=== PATIENT | female | born 1970 | race Hispanic/Latino ===

== ENCOUNTER 2021-02-06 17:59 | Emergency (ER) | payer OTHER, SELFPAY ==
[2021-02-06] MEDS ORDERED: Ibuprofen 200 MG TAB ONE (20:18)
[2021-02-06 20:59] LABS: SARS-CoV-2 NAA Rapid Test DETECTED (NotDetected)
== END 2021-02-06 22:05 | disposition home or self-care (01) ==
LOC: CSHERS 17:59
DX: U07.1 COVID-19 (principal); J45.909 Unspecified asthma, uncomplicated; G43.909 Migraine, unspecified, not intractable, without status migrainosus; E11.9 Type 2 diabetes mellitus without complications; Z79.84 Long term (current) use of oral hypoglycemic drugs; Z79.899 Other long term (current) drug therapy
CPT/HCPCS: 0240U; 99283

== ENCOUNTER 2021-02-08 11:45 | Inpatient (IN) | payer OTHER, SELFPAY ==
[2021-02-08 12:52] LABS: #Monocytes 0.4 10x3/uL (0.0-1.1); #Neutrophils 3.2 10x3/uL (1.5-8.4); %Basophils 0.4 % (0.0-2.0); %Lymphocytes 26.2 % (18.0-47.0); %Monocytes 7.8 % (0.0-10.0); %Neutrophils 65.4 % (40.0-75.0); Hemoglobin 13.7 g/dL (12.0-15.5); Mean Corpuscular Hemoglobin 30.4 pg (27.0-33.0); Mean Corpuscular Volume 89.4 fl (81.6-98.3); Mean Platelet Volume 10.5 fl (7.4-10.4); Platelet Count 219 10x3/uL (150-450); RBC Distribution Width 12.2 % (11.5-14.5); Red Blood Cell (RBC) Count 4.51 10x6/uL (3.90-5.03); White Blood Cell (WBC) Count 4.9 10x3/uL (3.5-10.5)
[2021-02-08 13:10] LABS: ALT (SGPT) 14 U/L (8-55); AST (SGOT) 18 U/L (5-34); Albumin 3.8 g/dL (3.5-5.0); Alkaline Phosphatase 67 U/L (40-110); Anion Gap 20 mmol/L (10-20); BUN (Urea Nitrogen) 7 mg/dL (7.0-18.7); Bilirubin, Total 0.2 mg/dL (0.2-1.2); Calc. Creatinine Clearance 0 mL/min (70-130); Calcium 8.1 mg/dL (7.8-10.44); Carbon Dioxide 17 mmol/L (22-29); Chloride 99 mmol/L (98-107); Globulin 3.1 g/dL (2.4-3.5); Glucose 281 mg/dL (70-105); Potassium 3.9 mmol/L (3.5-5.1); Protein, Total 6.9 g/dL (6.0-8.3); Sodium 132 mmol/L (136-145)
[2021-02-08] MEDS ORDERED: Ibuprofen 200 MG TAB ONE (14:56)
[2021-02-08 15:14] LABS: Actual Bicarbonate (HCO3v) 18 mEq/L (22-28); Base Excess -6.4 mEq/L (-2.0 to +3.0); Calcium, Ionized (venous) 0.95 mmol/L (1.16-1.32); Chloride (VBG) 97 mmol/L (98-106); Hemoglobin (Hb) 14.2 g/dL (11.7-16.0); Potassium (VBG) 8.34 mmol/L (3.70-5.30); Puncture Site Other Site; Sodium 126.4 mmol/L (133-146); pH (venous) 7.35 (7.32-7.43)
[2021-02-08] MEDS ORDERED: Sodium Chloride 0.65% Nasal 44 ML BOT EA NARE PRN (16:24)
[2021-02-08] MEDS ORDERED: Acetaminophen 500 MG TAB PO PRN (16:24)
[2021-02-08] MEDS ORDERED: Dextrose 5% in Water 1,000 ML IV PRN (16:24)
[2021-02-08] MEDS ORDERED: Dextrose 50% Abboject 50 ML SYRINGE SLOW IVP PRN (16:24)
[2021-02-08] MEDS ORDERED: Ondansetron PF 4 MG/2 ML Vial IVP PRN (16:24)
[2021-02-08] MEDS ORDERED: Ondansetron ODT 4 MG TAB PO PRN (16:24)
[2021-02-08] MEDS ORDERED: Sodium Chloride 0.9% 1,000 ML IV SCH (16:30)
[2021-02-08] MEDS ORDERED: Insulin Regular 300 UNITS/3 ML VIAL ONE (17:06)
[2021-02-08 19:07] VITALS: BMI 26.2
[2021-02-08] MEDS: Cholecalciferol 1,000 UNITS (25 MCG) TAB PO SCH (20:58)
[2021-02-08] MEDS: HumaLOG 300 UNITS/3 ML VIAL SC PRN (20:59)
[2021-02-09] MEDS: GUAIFENESIN SF SOLN 200 MG/10 ML UDCUP PO PRN ×3 (04:20→17:15)
[2021-02-09] MEDS: HumaLOG 300 UNITS/3 ML VIAL SC PRN ×4 (06:07→21:35)
[2021-02-09 07:22] LABS: #Monocytes 0.4 10x3/uL (0.0-1.1); #Neutrophils 3.2 10x3/uL (1.5-8.4); %Basophils 0.4 % (0.0-2.0); %Eosinophils 0.2 % (0.0-6.0); %Lymphocytes 24.1 % (18.0-47.0); %Monocytes 7.7 % (0.0-10.0); %Neutrophils 67.4 % (40.0-75.0); Hemoglobin 11.9 g/dL (12.0-15.5); Mean Corpuscular HGB CONC 34.2 g/dL (32.0-36.0); Mean Corpuscular Hemoglobin 30.1 pg (27.0-33.0); Mean Corpuscular Volume 88.1 fl (81.6-98.3); Mean Platelet Volume 10.9 fl (7.4-10.4); Platelet Count 193 10x3/uL (150-450); RBC Distribution Width 12.2 % (11.5-14.5); Red Blood Cell (RBC) Count 3.95 10x6/uL (3.90-5.03); White Blood Cell (WBC) Count 4.7 10x3/uL (3.5-10.5)
[2021-02-09 07:42] LABS: Anion Gap 16 mmol/L (10-20); BUN (Urea Nitrogen) 6 mg/dL (7.0-18.7); Calc. Creatinine Clearance 109 mL/min (70-130); Calcium 7.5 mg/dL (7.8-10.44); Carbon Dioxide 17 mmol/L (22-29); Chloride 108 mmol/L (98-107); Glucose 224 mg/dL (70-105); Potassium 3.9 mmol/L (3.5-5.1); Sodium 137 mmol/L (136-145)
[2021-02-09] MEDS ORDERED: Ventolin HFA Inhaler 60 PUFF INHALER INH PRN ×3 (08:55→14:27)
[2021-02-09] MEDS: Zinc Sulfate 220 MG CAP PO SCH (09:36)
[2021-02-09] MEDS: Ascorbic Acid 500 mg Chewable Tablet PO SCH (09:36)
[2021-02-09] MEDS: Ibuprofen 200 MG TAB PO PRN ×2 (13:05→21:33)
[2021-02-09] MEDS: Benzonatate 100 MG CAP PO PRN ×2 (13:05→21:33)
[2021-02-09] MEDS ORDERED: Dextrose 50% Abboject 50 ML SYRINGE SLOW IVP PRN (14:24)
[2021-02-09] MEDS ORDERED: Dextrose 5% in Water 1,000 ML IV PRN (14:24)
[2021-02-09 14:37] LABS: Hemoglobin 11.9 g/dL (12.0-15.5)
[2021-02-09] MEDS: Azithromycin 500 MG in Sodium Chloride 0.9% 250 ML 250 ML IVPB SCH (17:30)
[2021-02-09] MEDS: cefTRIAXone\\ROCEPHIN 1 GM in Sodium Chloride 0.9% 100 ML IVPB SCH (19:00)
[2021-02-09] MEDS: Atorvastatin Calcium 10 MG TAB PO SCH (21:33)
[2021-02-09] MEDS: Cholecalciferol 1,000 UNITS (25 MCG) TAB PO SCH (21:33)
[2021-02-10 05:21] LABS: #Monocytes 0.2 10x3/uL (0.0-1.1); #Neutrophils 2.7 10x3/uL (1.5-8.4); %Basophils 0.2 % (0.0-2.0); %Lymphocytes 29.4 % (18.0-47.0); %Monocytes 4.4 % (0.0-10.0); %Neutrophils 65.8 % (40.0-75.0); Mean Corpuscular HGB CONC 33.7 g/dL (32.0-36.0); Mean Corpuscular Hemoglobin 29.9 pg (27.0-33.0); Mean Corpuscular Volume 88.8 fl (81.6-98.3); Mean Platelet Volume 10.5 fl (7.4-10.4); Platelet Count 190 10x3/uL (150-450); RBC Distribution Width 12.3 % (11.5-14.5); Red Blood Cell (RBC) Count 4.01 10x6/uL (3.90-5.03); White Blood Cell (WBC) Count 4.1 10x3/uL (3.5-10.5)
[2021-02-10] MEDS ORDERED: GUAIFENESIN SF SOLN 200 MG/10 ML UDCUP ONE ×2 (05:27→15:42)
[2021-02-10] MEDS: Ibuprofen 200 MG TAB PO PRN ×2 (05:29→15:05)
[2021-02-10] MEDS: GUAIFENESIN SF SOLN 200 MG/10 ML UDCUP PO PRN ×2 (05:29→12:48)
[2021-02-10] MEDS: Benzonatate 100 MG CAP PO PRN ×2 (05:32→12:48)
[2021-02-10 05:37] LABS: Anion Gap 14 mmol/L (10-20); BUN (Urea Nitrogen) 5 mg/dL (7.0-18.7); Calc. Creatinine Clearance 106 mL/min (70-130); Calcium 7.7 mg/dL (7.8-10.44); Carbon Dioxide 21 mmol/L (22-29); Chloride 106 mmol/L (98-107); Glucose 237 mg/dL (70-105); Potassium 3.4 mmol/L (3.5-5.1); Sodium 138 mmol/L (136-145)
[2021-02-10] MEDS: HumaLOG 300 UNITS/3 ML VIAL SC PRN ×3 (06:14→19:37)
[2021-02-10] MEDS: Ascorbic Acid 500 mg Chewable Tablet PO SCH (09:54)
[2021-02-10] MEDS: Zinc Sulfate 220 MG CAP PO SCH (09:55)
[2021-02-10] MEDS: Enoxaparin Sodium 40 MG/0.4 ML SYRINGE SC SCH (09:55)
[2021-02-10] MEDS: Lisinopril 10 MG TAB PO SCH (12:47)
[2021-02-10] MEDS ORDERED: Potassium Chloride 20 MEQ TAB PO SCH (13:00)
[2021-02-10] MEDS: cefTRIAXone\\ROCEPHIN 1 GM in Sodium Chloride 0.9% 100 ML IVPB SCH (15:34)
[2021-02-10] MEDS: Azithromycin 500 MG in Sodium Chloride 0.9% 250 ML 250 ML IVPB SCH (15:34)
[2021-02-10] MEDS: Benzonatate 100 MG CAP PO SCH (19:36)
[2021-02-10] MEDS: Cholecalciferol 1,000 UNITS (25 MCG) TAB PO SCH (20:34)
[2021-02-10] MEDS: Atorvastatin Calcium 10 MG TAB PO SCH (20:34)
[2021-02-11] MEDS: Benzonatate 100 MG CAP PO SCH ×5 (01:19→23:33)
[2021-02-11] MEDS: Ibuprofen 200 MG TAB PO PRN ×2 (02:56→17:14)
[2021-02-11] MEDS: HumaLOG 300 UNITS/3 ML VIAL SC PRN ×2 (04:59→17:14)
[2021-02-11 05:47] LABS: Anion Gap 15 mmol/L (10-20); BUN (Urea Nitrogen) 5 mg/dL (7.0-18.7); Calc. Creatinine Clearance 111 mL/min (70-130); Calcium 7.5 mg/dL (7.8-10.44); Carbon Dioxide 19 mmol/L (22-29); Chloride 106 mmol/L (98-107); Glucose 218 mg/dL (70-105); Magnesium 1.9 mg/dL (1.6-2.6); Potassium 3.6 mmol/L (3.5-5.1); Sodium 136 mmol/L (136-145)
[2021-02-11] MEDS: Ascorbic Acid 500 mg Chewable Tablet PO SCH (09:39)
[2021-02-11] MEDS: Zinc Sulfate 220 MG CAP PO SCH (09:39)
[2021-02-11] MEDS: Enoxaparin Sodium 40 MG/0.4 ML SYRINGE SC SCH (09:40)
[2021-02-11] MEDS: Lisinopril 10 MG TAB PO SCH (09:46)
[2021-02-11] MEDS: GUAIFENESIN SF SOLN 200 MG/10 ML UDCUP PO PRN ×2 (10:30→16:25)
[2021-02-11] MEDS: cefTRIAXone\\ROCEPHIN 1 GM in Sodium Chloride 0.9% 100 ML IVPB SCH (16:25)
[2021-02-11] MEDS: Azithromycin 500 MG in Sodium Chloride 0.9% 250 ML 250 ML IVPB SCH (16:26)
[2021-02-11] MEDS: Atorvastatin Calcium 10 MG TAB PO SCH (19:32)
[2021-02-11] MEDS: Cholecalciferol 1,000 UNITS (25 MCG) TAB PO SCH (19:32)
[2021-02-12 04:37] LABS: Bilirubin Neg (Negative); Blood, Urine 250 (Negative); Clarity Clear (Clear); Glucose, Urine (Dipstick) >=1000 mg/dL (Negative); Ketone, Urine 150 mg/dL (Negative); Leukocyte Negative (Negative); Nitrite Negative (Negative); Protein, Urine (Dipstick) 100 mg/dl (Neg-Trace); Urobilinogen Normal mg/dL (Less than 2); pH, Urine 6.5 (5.0-9.0)
[2021-02-12 04:38] LABS: Urine Culture Reflex No No
[2021-02-12] MEDS: Ibuprofen 200 MG TAB PO PRN (05:29)
[2021-02-12] MEDS: Benzonatate 100 MG CAP PO SCH ×3 (05:29→17:41)
[2021-02-12] MEDS: glipiZIDE 5 MG TAB PO SCH (07:36)
[2021-02-12] MEDS: Zinc Sulfate 220 MG CAP PO SCH (07:37)
[2021-02-12] MEDS: Ascorbic Acid 500 mg Chewable Tablet PO SCH (07:37)
[2021-02-12] MEDS: Enoxaparin Sodium 40 MG/0.4 ML SYRINGE SC SCH (07:37)
[2021-02-12] MEDS: Lisinopril 10 MG TAB PO SCH (07:38)
[2021-02-12] MEDS: HumaLOG 300 UNITS/3 ML VIAL SC PRN (12:29)
[2021-02-12] MEDS ORDERED: Dexamethasone 20 MG/5 ML VIAL SLOW IVP SCH (14:30)
[2021-02-12] MEDS ORDERED: Dexamethasone 10 MG in Sodium Chloride 0.9% 50 ML IVPB SCH (14:30)
[2021-02-12] MEDS: cefTRIAXone\\ROCEPHIN 1 GM in Sodium Chloride 0.9% 100 ML IVPB SCH (16:24)
[2021-02-12] MEDS: Azithromycin 500 MG in Sodium Chloride 0.9% 250 ML 250 ML IVPB SCH (17:41)
[2021-02-12] MEDS: Atorvastatin Calcium 10 MG TAB PO SCH (19:38)
[2021-02-12] MEDS: Cholecalciferol 1,000 UNITS (25 MCG) TAB PO SCH (19:38)
[2021-02-13] MEDS: GUAIFENESIN SF SOLN 200 MG/10 ML UDCUP PO PRN ×5 (00:15→17:41)
[2021-02-13] MEDS: Benzonatate 100 MG CAP PO SCH ×4 (00:15→17:41)
[2021-02-13 05:26] LABS: Anion Gap 20 mmol/L (10-20); BUN (Urea Nitrogen) 11 mg/dL (7.0-18.7); CRP (Inflammatory) 9.44 mg/dL (= or < 0.5); Calc. Creatinine Clearance 102 mL/min (70-130); Calcium 8.1 mg/dL (7.8-10.44); Carbon Dioxide 12 mmol/L (22-29); Chloride 110 mmol/L (98-107); Glucose 278 mg/dL (70-105); Potassium 4.1 mmol/L (3.5-5.1); Sodium 138 mmol/L (136-145)
[2021-02-13 05:36] LABS: Hemoglobin 12.3 g/dL (12.0-15.5); Mean Corpuscular HGB CONC 33.9 g/dL (32.0-36.0); Mean Corpuscular Hemoglobin 30.2 pg (27.0-33.0); Mean Corpuscular Volume 89.2 fl (81.6-98.3); Mean Platelet Volume 10.1 fl (7.4-10.4); Platelet Count 356 10x3/uL (150-450); RBC Distribution Width 12.3 % (11.5-14.5); Red Blood Cell (RBC) Count 4.07 10x6/uL (3.90-5.03)
[2021-02-13] MEDS ORDERED: GUAIFENESIN SF SOLN 200 MG/10 ML UDCUP ONE ×2 (07:35)
[2021-02-13] MEDS: glipiZIDE 5 MG TAB PO SCH (07:40)
[2021-02-13] MEDS: Zinc Sulfate 220 MG CAP PO SCH (07:40)
[2021-02-13] MEDS: Ascorbic Acid 500 mg Chewable Tablet PO SCH (07:40)
[2021-02-13] MEDS: Lisinopril 10 MG TAB PO SCH ×2 (07:41→08:07)
[2021-02-13] MEDS: Enoxaparin Sodium 40 MG/0.4 ML SYRINGE SC SCH (07:41)
[2021-02-13] MEDS ORDERED: Dexamethasone 20 MG/5 ML VIAL SLOW IVP SCH (09:00)
[2021-02-13] MEDS ORDERED: Dexamethasone 10 MG in Sodium Chloride 0.9% 50 ML IVPB SCH (09:00)
[2021-02-13] MEDS: HumaLOG 300 UNITS/3 ML VIAL SC PRN ×3 (11:59→20:27)
[2021-02-13] MEDS: cefTRIAXone\\ROCEPHIN 1 GM in Sodium Chloride 0.9% 100 ML IVPB SCH (15:53)
[2021-02-13] MEDS: Dexamethasone 20 MG/5 ML VIAL SLOW IVP SCH ×2 (15:54→20:06)
[2021-02-13] MEDS: Azithromycin 500 MG in Sodium Chloride 0.9% 250 ML 250 ML IVPB SCH (17:41)
[2021-02-13] MEDS ORDERED: Budesonide 0.5 MG/2 ML NEB NEB SCH (18:30)
[2021-02-13] MEDS: Cholecalciferol 1,000 UNITS (25 MCG) TAB PO SCH (20:07)
[2021-02-13] MEDS: Atorvastatin Calcium 10 MG TAB PO SCH (20:07)
[2021-02-13] MEDS: Mometasone 100 MCG/PUFF (1 INHALER) INH SCH (23:14)
[2021-02-14] MEDS: GUAIFENESIN SF SOLN 200 MG/10 ML UDCUP PO PRN ×2 (00:03→05:13)
[2021-02-14] MEDS: Benzonatate 100 MG CAP PO SCH ×5 (00:03→21:12)
[2021-02-14] MEDS: HumaLOG 300 UNITS/3 ML VIAL SC PRN ×3 (06:17→16:43)
[2021-02-14] MEDS: Mometasone 100 MCG/PUFF (1 INHALER) INH SCH ×2 (06:50→19:20)
[2021-02-14] MEDS: Dexamethasone 20 MG/5 ML VIAL SLOW IVP SCH ×3 (08:34→21:12)
[2021-02-14] MEDS: Enoxaparin Sodium 40 MG/0.4 ML SYRINGE SC SCH (08:34)
[2021-02-14] MEDS: Ascorbic Acid 500 mg Chewable Tablet PO SCH (08:34)
[2021-02-14] MEDS: glipiZIDE 5 MG TAB PO SCH (08:34)
[2021-02-14] MEDS: Zinc Sulfate 220 MG CAP PO SCH (08:34)
[2021-02-14] MEDS: Lisinopril 10 MG TAB PO SCH (08:34)
[2021-02-14] MEDS: cefTRIAXone\\ROCEPHIN 1 GM in Sodium Chloride 0.9% 100 ML IVPB SCH (16:19)
[2021-02-14] MEDS: Insulin Regular 300 UNITS/3 ML VIAL SC SCH (17:20)
[2021-02-14] MEDS: Azithromycin 500 MG in Sodium Chloride 0.9% 250 ML 250 ML IVPB SCH (17:20)
[2021-02-14] MEDS ORDERED: Lantus 1000 UNITS/10 ML VIAL SC SCH (21:00)
[2021-02-14] MEDS: Atorvastatin Calcium 10 MG TAB PO SCH (21:12)
[2021-02-14] MEDS: Cholecalciferol 1,000 UNITS (25 MCG) TAB PO SCH (21:12)
[2021-02-14] MEDS: Lantus 1000 UNITS/10 ML VIAL SC SCH (21:13)
[2021-02-15] MEDS: Benzonatate 100 MG CAP PO SCH ×4 (05:53→21:41)
[2021-02-15] MEDS: HumaLOG 300 UNITS/3 ML VIAL SC PRN ×3 (05:54→18:29)
[2021-02-15] MEDS: Mometasone 100 MCG/PUFF (1 INHALER) INH SCH ×2 (07:05→18:58)
[2021-02-15] MEDS: Ascorbic Acid 500 mg Chewable Tablet PO SCH (08:49)
[2021-02-15] MEDS: Dexamethasone 20 MG/5 ML VIAL SLOW IVP SCH ×2 (08:49→21:42)
[2021-02-15] MEDS: glipiZIDE 5 MG TAB PO SCH (08:49)
[2021-02-15] MEDS: Enoxaparin Sodium 40 MG/0.4 ML SYRINGE SC SCH (08:49)
[2021-02-15] MEDS: Lisinopril 10 MG TAB PO SCH (08:50)
[2021-02-15] MEDS: Pantoprazole 40 MG VIAL IVP SCH (08:50)
[2021-02-15] MEDS: Zinc Sulfate 220 MG CAP PO SCH (08:50)
[2021-02-15] MEDS: Insulin Regular 300 UNITS/3 ML VIAL SC SCH ×3 (08:52→16:42)
[2021-02-15] MEDS: Lantus 1000 UNITS/10 ML VIAL SC SCH ×2 (08:53→21:43)
[2021-02-15] MEDS ORDERED: Azithromycin 500 MG VIAL ONE (16:36)
[2021-02-15] MEDS ORDERED: cefTRIAXone\\ROCEPHIN 1 GM VIAL ONE (16:36)
[2021-02-15] MEDS: cefTRIAXone\\ROCEPHIN 1 GM in Sodium Chloride 0.9% 100 ML IVPB SCH (16:42)
[2021-02-15] MEDS: Azithromycin 500 MG in Sodium Chloride 0.9% 250 ML 250 ML IVPB SCH (18:18)
[2021-02-15] MEDS ORDERED: Mometasone 100 MCG/PUFF (1 INHALER) INH PRN (20:38)
[2021-02-15] MEDS: metFORMIN 500 MG TAB PO SCH (21:41)
[2021-02-15] MEDS: Cholecalciferol 1,000 UNITS (25 MCG) TAB PO SCH (21:41)
[2021-02-15] MEDS: Atorvastatin Calcium 10 MG TAB PO SCH (21:41)
[2021-02-16 04:41] LABS: Anion Gap 12 mmol/L (10-20); BUN (Urea Nitrogen) 15 mg/dL (7.0-18.7); CRP (Inflammatory) 0.95 mg/dL (= or < 0.5); Calc. Creatinine Clearance 109 mL/min (70-130); Calcium 8.1 mg/dL (7.8-10.44); Carbon Dioxide 23 mmol/L (22-29); Chloride 107 mmol/L (98-107); Glucose 300 mg/dL (70-105); Potassium 4.4 mmol/L (3.5-5.1); Sodium 138 mmol/L (136-145)
[2021-02-16 04:55] LABS: #Monocytes 0.6 10x3/uL (0.0-1.1); #Neutrophils 11.4 10x3/uL (1.5-8.4); %Basophils 0.1 % (0.0-2.0); %Lymphocytes 7.7 % (18.0-47.0); %Monocytes 4.2 % (0.0-10.0); %Neutrophils 87.5 % (40.0-75.0); Hemoglobin 11.9 g/dL (12.0-15.5); Mean Corpuscular HGB CONC 34.1 g/dL (32.0-36.0); Mean Corpuscular Hemoglobin 29.8 pg (27.0-33.0); Mean Corpuscular Volume 87.5 fl (81.6-98.3); Mean Platelet Volume 9.8 fl (7.4-10.4); Platelet Count 555 10x3/uL (150-450); RBC Distribution Width 12.2 % (11.5-14.5); Red Blood Cell (RBC) Count 3.99 10x6/uL (3.90-5.03)
[2021-02-16] MEDS: Benzonatate 100 MG CAP PO SCH ×4 (06:10→21:30)
[2021-02-16] MEDS: GUAIFENESIN SF SOLN 200 MG/10 ML UDCUP PO PRN (06:53)
[2021-02-16] MEDS: Mometasone 100 MCG/PUFF (1 INHALER) INH SCH ×2 (07:05→19:19)
[2021-02-16] MEDS: Insulin Regular 300 UNITS/3 ML VIAL SC SCH ×3 (11:13→17:43)
[2021-02-16] MEDS: glipiZIDE 5 MG TAB PO SCH (11:20)
[2021-02-16] MEDS: Ascorbic Acid 500 mg Chewable Tablet PO SCH (11:20)
[2021-02-16] MEDS: Enoxaparin Sodium 40 MG/0.4 ML SYRINGE SC SCH (11:20)
[2021-02-16] MEDS: Lantus 1000 UNITS/10 ML VIAL SC SCH ×2 (11:20→21:31)
[2021-02-16] MEDS: metFORMIN 500 MG TAB PO SCH ×2 (11:21→21:28)
[2021-02-16] MEDS: Pantoprazole 40 MG VIAL IVP SCH (11:21)
[2021-02-16] MEDS: Zinc Sulfate 220 MG CAP PO SCH (11:21)
[2021-02-16] MEDS: HumaLOG 300 UNITS/3 ML VIAL SC PRN ×2 (13:09→17:43)
[2021-02-16] MEDS: Atorvastatin Calcium 10 MG TAB PO SCH (21:28)
[2021-02-16] MEDS: Cholecalciferol 1,000 UNITS (25 MCG) TAB PO SCH (21:28)
[2021-02-17] MEDS: GUAIFENESIN SF SOLN 200 MG/10 ML UDCUP PO PRN (06:12)
[2021-02-17] MEDS: Benzonatate 100 MG CAP PO SCH ×2 (06:12→12:54)
[2021-02-17] MEDS ORDERED: Dexamethasone 4 MG TAB PO SCH (08:00)
[2021-02-17] MEDS: Mometasone 100 MCG/PUFF (1 INHALER) INH SCH (08:21)
[2021-02-17] MEDS: Ascorbic Acid 500 mg Chewable Tablet PO SCH (08:22)
[2021-02-17] MEDS: glipiZIDE 5 MG TAB PO SCH (08:23)
[2021-02-17] MEDS: metFORMIN 500 MG TAB PO SCH (08:23)
[2021-02-17] MEDS: Enoxaparin Sodium 40 MG/0.4 ML SYRINGE SC SCH (08:23)
[2021-02-17] MEDS: Pantoprazole 40 MG VIAL IVP SCH (08:23)
[2021-02-17] MEDS: Zinc Sulfate 220 MG CAP PO SCH (08:23)
[2021-02-17] MEDS: Insulin Regular 300 UNITS/3 ML VIAL SC SCH (08:24)
[2021-02-17 11:02] VITALS: BP 96/45; TEMP 98.2
== END 2021-02-17 14:35 | disposition home or self-care (01) | DRG 177 ==
LOC: CSHERS 11:45 → CSHTELE 18:23
PROVIDERS: ADMIT Internal Medicine; ATTEND Internal Medicine
PROC: 8E0ZXY6 Isolation (ICD-10-PCS; principal; 2021-02-08)
DX: U07.1 COVID-19 (principal); J12.82 Pneumonia due to coronavirus disease 2019; J15.9 Unspecified bacterial pneumonia; J80 Acute respiratory distress syndrome; J45.909 Unspecified asthma, uncomplicated; I10 Essential (primary) hypertension; E11.65 Type 2 diabetes mellitus with hyperglycemia; E78.5 Hyperlipidemia, unspecified; Z88.8 Allergy status to other drugs, medicaments and biological substances; Z98.890 Other specified postprocedural states
CPT/HCPCS: 36415; 36416; 71045; 71275; 80048; 80053; 81001; 82010; 82728; 82805; 83605; 83735; 84145; 84484; 85025; 85027; 85379; 86140; 87040; 93005; 94664; 94760; 96374; C9113; J0456; J0696; J1100; J1650; J1815; J3475; J3490; J7050; J8540

== ENCOUNTER 2021-05-04 11:32 | Emergency (ER) | payer OTHER, SELFPAY | END 2021-05-04 12:19 | disposition home or self-care (01) | LOC: CSHERS 11:32 | DX: A60.04 Herpesviral vulvovaginitis (principal); I10 Essential (primary) hypertension; E11.9 Type 2 diabetes mellitus without complications; E78.00 Pure hypercholesterolemia, unspecified; J45.909 Unspecified asthma, uncomplicated | CPT/HCPCS: 99283 ==

== ENCOUNTER 2021-12-21 15:02 | Emergency (ER) | payer OTHER | END 2021-12-21 17:22 | disposition home or self-care (01) | LOC: CSHERS 15:02 | DX: M54.50 Low back pain, unspecified (principal); I10 Essential (primary) hypertension; E11.9 Type 2 diabetes mellitus without complications; E78.00 Pure hypercholesterolemia, unspecified | CPT/HCPCS: 99283 ==

== ENCOUNTER 2022-05-21 10:31 | Emergency (ER) | payer OTHER, SELFPAY ==
[2022-05-21] MEDS ORDERED: Ketorolac Tromethamine 30 MG/ML VIAL ONE (12:20)
== END 2022-05-21 12:24 | disposition home or self-care (01) ==
LOC: CSHERS 10:31
DX: S80.02XA Contusion of left knee, initial encounter (principal); S80.01XA Contusion of right knee, initial encounter; M25.562 Pain in left knee; W18.30XA Fall on same level, unspecified, initial encounter; E11.9 Type 2 diabetes mellitus without complications; I10 Essential (primary) hypertension; E78.00 Pure hypercholesterolemia, unspecified
CPT/HCPCS: 96372; J1885

== ENCOUNTER 2022-07-28 11:47 | Emergency (ER) | payer OTHER ==
[2022-07-28] MEDS ORDERED: Lidocaine 1% (PF) 30 ML VIAL ONE (13:43)
[2022-07-28] MEDS ORDERED: HYDROmorphone 0.5 MG/0.5 ML SYRINGE ONE (13:44)
== END 2022-07-28 14:33 | disposition home or self-care (01) ==
LOC: CSHERS 11:47
DX: L05.01 Pilonidal cyst with abscess (principal); I10 Essential (primary) hypertension; E11.9 Type 2 diabetes mellitus without complications; E78.00 Pure hypercholesterolemia, unspecified; J45.909 Unspecified asthma, uncomplicated
CPT/HCPCS: 93005; 96372; J1170; J2001

== ENCOUNTER 2023-06-07 16:38 | Emergency (ER) | payer OTHER ==
[2023-06-07] MEDS ORDERED: Ondansetron PF 4 MG/2 ML Vial ONE (17:34)
[2023-06-07 17:53] LABS: Bilirubin Neg (Negative); Blood, Urine Negative (Negative); Clarity Clear (Clear); Glucose, Urine (Dipstick) >=1000 mg/dL (Negative); Ketone, Urine Negative (Negative); Leukocyte Negative (Negative); Nitrite Negative (Negative); Protein, Urine (Dipstick) Negative (Neg-Trace); Specific Gravity, Urine 1.015 (1.005-1.030); Urobilinogen Normal mg/dL (Less than 2)
[2023-06-07 17:55] LABS: ALT (SGPT) 17 U/L (8-55); AST (SGOT) 10 U/L (5-34); Albumin 3.8 g/dL (3.5-5.0); Alkaline Phosphatase 64 U/L (40-110); Anion Gap 16 mmol/L (10-20); BUN (Urea Nitrogen) 6 mg/dL (9.8-20.1); Bilirubin, Total 0.3 mg/dL (0.2-1.2); Calc. Creatinine Clearance 0 mL/min (70-130); Calcium 8.5 mg/dL (7.8-10.44); Carbon Dioxide 19 mmol/L (22-29); Chloride 102 mmol/L (98-107); Estimated GFR 92; Protein, Total 6.8 g/dL (6.0-8.3); Sodium 133 mmol/L (136-145)
[2023-06-07 17:56] LABS: Pregnancy Test - Urine (BHCG) Negative (Negative); Pregu Control Bar Appear? YES (CONTROL BAR); Specific Gravity 1.015 (1.002-1.036)
[2023-06-07 17:57] LABS: Pregu Control Background? CLEAR/WHITE (CLR/WHITE)
[2023-06-07 17:58] LABS: Glucose 558 mg/dL (70-105)
[2023-06-07 18:03] LABS: #Basophils 0.1 10x3/uL (0.0-0.2); #Eosinphils 0.1 10x3/uL (0.0-0.5); #Monocytes 0.7 10x3/uL (0.0-1.1); #Neutrophils 4.4 10x3/uL (1.5-8.4); %Basophils 1.4 % (0.0-2.0); %Lymphocytes 32.9 % (18.0-47.0); %Monocytes 8.8 % (0.0-10.0); %Neutrophils 55.8 % (40.0-75.0); Hematocrit 39.6 % (34.9-44.5); Hemoglobin 14.1 g/dL (12.0-15.5); Mean Corpuscular HGB CONC 35.6 g/dL (32.0-36.0); Mean Corpuscular Hemoglobin 31.2 pg (27.0-33.0); Mean Corpuscular Volume 87.6 fl (81.6-98.3); Mean Platelet Volume 11.2 fl (7.4-10.4); Platelet Count 287 10x3/uL (150-450); RBC Distribution Width 12.2 % (11.5-14.5); Red Blood Cell (RBC) Count 4.52 10x6/uL (3.90-5.03)
[2023-06-07 18:06] LABS: Bacteria/HPF 3+ HPF (None Seen); CAUTI Indications for Culture Dysuria,urgency,freq; RBC/HPF None Seen HPF (0-3); Squamous Epithelial 0-3 HPF (0-3); Urine Culture Reflex No No; WBC/HPF 0-3 HPF (0-3)
[2023-06-07] MEDS ORDERED: Insulin Regular 300 UNITS/3 ML VIAL ONE (18:44)
== END 2023-06-07 19:45 | disposition home or self-care (01) ==
LOC: CSHERS 16:38
DX: R11.10 Vomiting, unspecified (principal); E11.65 Type 2 diabetes mellitus with hyperglycemia; I10 Essential (primary) hypertension
CPT/HCPCS: 36416; 80053; 81001; 81025; 85025; 96374; 96375; J1815; J2405